=== PATIENT | female | born 1975 | race Caucasian/White ===

== ENCOUNTER 2018-06-14 13:25 | Emergency (ER) | payer OTHER ==
[~2018-06-14] VITALS: Ht 160 cm; Wt 61.7 kg
[2018-06-14 13:39] VITALS: Ht 160 cm; Wt 61.7 kg
[2018-06-14 14:19] VITALS: BP 150/69
== END 2018-06-14 14:19 | disposition home or self-care (01) ==
LOC: ED 13:25
DX: B01.9 Varicella without complication (principal)